=== PATIENT | male | born 1995 | race Caucasian/White ===

== ENCOUNTER 2018-06-01 07:10 | Observation (INO) | payer OTHER ==
[~2018-06-01] VITALS: Ht 182.9 cm; Wt 95.5 kg
[2018-06-01] MEDS: NS 1,000 ML IV SCH ×2 (01:15→18:26)
[2018-06-01] MEDS ORDERED: NS 1,000 ML IV ONE ×2 (07:45→11:45)
[2018-06-01 08:00] LABS: BASO % 0.2 % (0.0-1.0); EOS # 0.1 10^3/uL (0.0-0.50); HEMATOCRIT 42.7 % (42.0-52.0); HEMOGLOBIN 14.4 g/dl (13.5-17.5); LYMPH # 0.6 10^3/uL (1.5-6.5); LYMPH % 7.5 % (24.0-44.0); MEAN CORPUSCULAR HEMOGLOBIN 28.4 pg (27.0-33.0); MEAN CORPUSCULAR HGB CONC 33.7 g/dl (32.0-36.5); MEAN CORPUSCULAR VOLUME 84.2 fl (80.0-96.0); MONO # 0.5 10^3/uL (0.0-0.8); MONO % 6.6 % (0.0-5.0); NEUTROPHILS # 6.9 10^3/uL (1.8-7.7); PLATELET COUNT, AUTOMATED 165 10^3/uL (150-450); RED BLOOD COUNT 5.07 10^6/uL (4.30-6.10); WHITE BLOOD COUNT 8.2 10^3/uL (4.0-10.0)
--- NOTE | 2018-06-01 08:00 | REP ---
Head CT without contrast: History: Syncope. Comparison study: No comparison study. CT findings: Bone window settings demonstrate an intact bony calvarium. There is no evidence of skull fracture or incidental bony calvarial lesion. The visualized paranasal sinuses appear clear. No intraorbital abnormality is seen. On soft tissue window setting images; the lateral, third, and fourth ventricles are normal in size and position. Green-white differentiation pattern is normal above and below the tentorium. There are is no evidence of intracranial hemorrhage. No mass, edema, infarction, or midline shift is seen. No extra-axial fluid collection is appreciated. Impression: Negative noncontrast head CT. Electronically Signed by Nahun Jenkins MD 06/01/2018 07:58 A
--- NOTE | 2018-06-01 08:19 | REP ---
Chest x-ray: Two views. History: Syncopal episode . Comparison study: No comparison . Findings: The lungs are well inflated and free of infiltrate. The pleural angles are sharp. The heart size is normal. Pulmonary vasculature is not increased. No significant bony abnormality is seen. Impression: Negative chest x-ray. Electronically Signed by Nahun Jenkins MD 06/01/2018 08:18 A
[2018-06-01] MEDS ORDERED: KETOROLAC 30 MG/ML VIAL (J1885) IV ONE (08:30)
[2018-06-01 10:22] LABS: AMPHETAMINES LEVEL URINE NEGATIVE (NEGATIVE); BARBITURATES URINE NEGATIVE (NEGATIVE); BENZODIAZEPINES URINE NEGATIVE (NEGATIVE); CANNABINOIDS URINE POSITIVE (NEGATIVE); COCAINE METABOLITE URINE NEGATIVE (NEGATIVE); METHADONE URINE NEGATIVE (NEGATIVE); OPIATES URINE NEGATIVE (NEGATIVE); PHENCYCLIDINE URINE NEGATIVE (NEGATIVE)
[2018-06-01 10:47] LABS: BLOOD UREA NITROGEN 14 MG/DL (7-18); CALCIUM LEVEL 8.7 MG/DL (8.5-10.1); CARBON DIOXIDE LEVEL 28 MEQ/L (21-32); CHLORIDE LEVEL 108 MEQ/L (98-107); CPK CREATINE PHOSPHOKINASE 858 U/L (39-308); CREATININE FOR GFR 0.82 MG/DL (0.70-1.30); ETHYL ALCOHOL (ETHANOL) 0.003 % (0.000-0.010); FREE T4 1.08 NG/DL (0.76-1.46); GLOMERULAR FILTRATION RATE > 60.0 (>60); GLUCOSE, FASTING 110 MG/DL (70-100); MAGNESIUM LEVEL 1.8 MG/DL (1.8-2.4); MB/CK RELATIVE INDEX 0.33 (< OR =4); POTASSIUM SERUM 3.8 MEQ/L (3.5-5.1); SODIUM LEVEL 142 MEQ/L (136-145); THYROID STIMULATING HORMONE 0.625 uIU/ML (0.358-3.740); TROPONIN I < 0.02 NG/ML (< 0.10)
[2018-06-01 11:46] LABS: ALBUMIN 4.2 GM/DL (3.2-5.2); ALT/SGPT 34 U/L (12-78); BILIRUBIN,DIRECT < 0.1 MG/DL (0.0-0.2); BILIRUBIN,TOTAL 0.3 MG/DL (0.2-1.0); TOTAL PROTEIN 6.9 GM/DL (6.4-8.2)
[2018-06-01] MEDS ORDERED: levETIRAcetam INJection 1,000 MG in D5W 100 ML IV ONE (13:00)
[2018-06-01] MEDS ORDERED: ONDANSETRON 4MG/2ML VIAL (J2405) IV PRN (14:30)
--- NOTE | 2018-06-01 15:22 | HPE ---
DATE OF ADMISSION: 06/01/2018 PRIMARY CARE PROVIDER: None. HISTORY OF PRESENT ILLNESS: Mr. Vizcarra is a 22-year-old male who was brought in and accompanied by his mother, father and aunt for what appears to be a syncopal episode at home. Per the father, he found his son passed out on the floor at around 6:15 a.m. for a few minutes. During this time, he denies any shaking of the arms or legs, but does admit to tongue biting. He had an episode of vomiting during his ambulance ride. The father believes that this episode had lasted a few minutes and the patient was reportedly confused for about 5 to 10 minutes. He believes that he had a seizure even earlier in the day, around 2:00 a.m. today while he was sleeping. He states that during that episode he felt his right hand and arm stiffen up and he felt as if his arm was shaking when in reality it was not. He denies any episodes of bowel or bladder loss or any confusion at the time of admission. He was initially planned for discharge from the emergency room; however, had generalized tonic clonic seizure that lasted a few minutes in the emergency room that was witnessed by staff where he was reportedly shaking throughout. He was reportedly postictal afterwards for 5 to 10 minutes. The hospitalist was called to admit. The patient will be admitted under observation. Neurology is on board. At the time of admission, the patient denies any symptoms. PAST MEDICAL HISTORY: None. HOME MEDICATIONS: None. FAMILY HISTORY: One cousin with a seizure. SOCIAL HISTORY: Smokes marijuana daily, last intake was last night around 9:00 p.m. He drinks alcohol almost daily (a couple of shots) and drinks 10 to 15 whiskey shots on the weekends. Illicit substances, denies. ALLERGIES: None. SURGICAL HISTORY: Birthmark removed from the left arm and tattoo on his left upper arm. REVIEW OF SYSTEMS: Denies fevers, chills, weight loss. HEENT: Denies headache, vision or auditory changes. No eye or ear pain. No dysphagia. CARDIAC: Denies any chest pain, palpitations, or swelling. LUNGS: Denies any coughing, wheezing, or shortness of breath. GASTROINTESTINAL: Admits to nausea and vomiting. Denies any abdominal pain or changes in bowel habits. SKIN: Denies any new rashes, lesions, lumps or bumps. MUSCULOSKELETAL: Denies any body pain or muscle aches. NEUROLOGIC: Admits to an episode of syncope at home that lasted a few minutes, as well as generalized tonic clonic seizure here in the emergency room. Admits to episodes of confusion after the seizures. Admits to tongue biting during these episodes. No bladder or bowel incontinence. No paresthesias. No confusion currently. PHYSICAL EXAMINATION: VITAL SIGNS: Temperature 98, pulse 85, respirations 20, blood pressure 100/53, MAP of 69, pulse oximetry 97% on room air. GENERAL: Resting comfortably in bed. No acute distress. Alert and oriented times three. HEENT: Normocephalic, atraumatic. Extraocular muscles are intact. Anicteric sclerae. Has signs of bitten tongue from the recent seizure. No pharyngeal exudates, erythema or edema. CARDIAC: Regular rate and rhythm. No audible murmurs. Normal S1, S2. LUNGS: Clear to auscultation bilaterally. No wheezing, rhonchi or rales. ABDOMEN: Soft, nontender, nondistended. Positive bowel sounds. EXTREMITIES: 2+ radial pulses bilaterally. 5/5 strength in upper and lower extremities. NEUROLOGIC: Cranial nerves II through XII intact throughout. No focal deficits. Motor and sensation intact and equal bilaterally. No slurred speech or confusion. Negative Babinski. Intact and equal rapid alternating movements. Is fully conversant and able to follow the conversation. SKIN: No visible lesions, ulcerations or rashes. LABORATORY DATA: WBC 8.2, hemoglobin and hematocrit 14.4/42.7, platelets 167. Sodium 142, potassium 3.8, BUN and creatinine 14 and 0.82, magnesium 1.8. Liver panel normal. CPK 858. Cardiac markers are negative. TSH and T4 are normal. UA has 2+ protein, 1+ glucose, 2+ blood. Urine toxicology screen is positive for cannabinoids, otherwise negative. IMAGING: Head CT negative. Chest x-ray is negative. Head MRA and MRI are currently pending. IMPRESSION/PLAN: 1. Generalized tonic clonic seizure with a syncopal episode at home, which was also likely a seizure episode. The patient had a witnessed seizure episode here in the emergency room and given his syncopal episode at home, which may be related to this, we will admit the patient, place on seizure precautions, electroencephalogram (EEG) is ordered. Neurology has been consulted. Appreciate their input. The patient has been loaded with 1000 mg of Keppra in the emergency room and we will start him on 750 mg twice a day, per neurology recommendations. Currently MRI and MRA of the head are pending. His CT and chest x-ray on admission were negative thus far. We will place him on neuro checks. Current health status was discussed with the patient and family. All questions were answered. 2. Elevated CPK. Level is 858 on admission, likely related to his seizure episode. Continue with fluid hydration. The patient is asymptomatic currently. 3. Marijuana use. The patient smokes marijuana on a daily basis. Last smoked yesterday around 9:00 p.m. The patient has been counseled on smoking cessation. 4. Alcohol use. The patient is a heavy drinking of 10 to 15 shots of whiskey over the weekends, as well as "a couple of shots almost daily." Last drink was last night. We will closely monitor with CIWA protocol. The patient has been counseled on reducing and eliminating, if possible, all alcohol. 5. Deep vein thrombosis (DVT) prophylaxis. TEDs and sequential compression device (SCD). DISPOSITION: We will admit to general medical floor on the hospital service under observation status. Neurology consulted. My faculty preceptor for this patient encounter was physically present during the encounter and was fully available. All aspects of the patient interview, examination, medical decision making process, and medical care plan development were reviewed and approved by the faculty preceptor. The faculty preceptor is aware and concurs with the plan as stated in the body of this note and will attest to such by his/her co-signature.
--- NOTE | 2018-06-01 15:48 | REP ---
MRA BRAIN WITHOUT CONTRAST: HISTORY: Seizure. 3D [id number] MR angiography was performed at the level of the [place]. There is no aneurysm, arteriovenous malformation or atherosclerotic lesion. Major intracranial vessels are patent. The vertebral arteries are equal in size. IMPRESSION: Normal MRA brain. Electronically Signed by Tavon Mak MD 06/01/2018 03:56 P
--- NOTE | 2018-06-01 15:51 | REP ---
MR BRAIN WITHOUT CONTRAST: HISTORY: Seizure. COMPARISON: CT 06/01/2018. There are no areas of abnormal signal intensity in the brain. There is no intraparenchymal hemorrhage, infarct, mass, or midline shift. The ventricular system is normal in appearance. There is no extracerebral collection. The visualized sinuses are clear. IMPRESSION: There is no intracranial lesion. Electronically Signed by Tavon Mak MD 06/01/2018 03:57 P
[2018-06-01 16:45] VITALS: BP 122/61
[2018-06-01 18:40] VITALS: BP 144/89
[2018-06-01] MEDS: levETIRAcetam 250MG TABLET (KEPPRA) PO SCH (20:02)
[2018-06-01] MEDS: ACETAMINOPHEN TAB 650MG DOSE (2X325MG) PO PRN (21:12)
[2018-06-01 22:00] VITALS: BP 129/64
[2018-06-02 02:00] VITALS: BP 125/65
[2018-06-02 06:00] VITALS: BP 122/69
[2018-06-02 07:21] LABS: HEMATOCRIT 37.1 % (42.0-52.0); HEMOGLOBIN 12.5 g/dl (13.5-17.5); MEAN CORPUSCULAR HEMOGLOBIN 28.5 pg (27.0-33.0); MEAN CORPUSCULAR HGB CONC 33.7 g/dl (32.0-36.5); MEAN CORPUSCULAR VOLUME 84.5 fl (80.0-96.0); PLATELET COUNT, AUTOMATED 148 10^3/uL (150-450); RED BLOOD COUNT 4.39 10^6/uL (4.30-6.10); WHITE BLOOD COUNT 7.4 10^3/uL (4.0-10.0)
[2018-06-02] MEDS: levETIRAcetam 250MG TABLET (KEPPRA) PO SCH ×2 (07:44→21:03)
[2018-06-02] MEDS: NS 1,000 ML IV SCH ×2 (07:45→13:00)
[2018-06-02 08:01] LABS: BLOOD UREA NITROGEN 8 MG/DL (7-18); CARBON DIOXIDE LEVEL 26 MEQ/L (21-32); CHLORIDE LEVEL 110 MEQ/L (98-107); CREATININE FOR GFR 0.75 MG/DL (0.70-1.30); GLOMERULAR FILTRATION RATE > 60.0 (>60); GLUCOSE, FASTING 96 MG/DL (70-100); POTASSIUM SERUM 3.4 MEQ/L (3.5-5.1); SODIUM LEVEL 142 MEQ/L (136-145)
[2018-06-02 08:02] LABS: CPK CREATINE PHOSPHOKINASE 1100 U/L (39-308)
--- NOTE | 2018-06-02 09:08 | CR ---
DATE OF CONSULTATION: 06/01/2018 REASON FOR CONSULTATION: New-onset seizure. HISTORY OF PRESENTING ILLNESS: Dino Vizcarra is a 22-year-old male who has been experiencing approximately 1-2-month symptoms of right hand digits 4 and 5 locking up on him, as well as the hand. He states that earlier in the day, the patient had an episode where his hand locked up. He then passed out. He was able to return back from that episode of loss of consciousness without any significant postictal state. He states that he went to the shower and then had another episode. He had a witnessed episode in the hospital with generalized tonic-clonic activity, including tongue biting. He denied any incontinence to his bowel or bladder. The patient did have significant postictal confusion. Head CT was negative. The patient did have an MRI of the brain and MR angiogram of the head, which were read as normal. The patient has a family history of epilepsy in a second cousin of his. The patient smokes marijuana several times a day. The patient had alcohol and drinks 10-15 whiskey shots on weekends. He has a couple of shots of alcohol every day. He denies any use of illicit drugs other than the marijuana. The patient at this point in time was loaded on Keppra 1000 mg and then maintained on 750 mg twice a day. He is feeling nauseated and did throw up today. He does have a slight fever. The patient states that he feels sore throughout his body. His tongue is sore where he bit his tongue bilaterally. REVIEW OF SYSTEMS: 14-point review of systems obtained and is negative except as per history of present illness (HPI). PHYSICAL EXAMINATION Blood pressure is 103/52, pulse rate 76, respiratory rate is 18, temperature is 98.6 degrees Fahrenheit, oxygenation is 99% on room air, current height 6 feet 0 inches, current weight is 95 kg. The patient is awake, alert, oriented to person, place, and time. Speech, language, comprehension, and repetition are intact. Pupils are 3 mm, round, reactive to light. Extraocular movements are intact in all directions without nystagmus. Sensation V1, V2, V3 is intact to light touch. No facial asymmetry to activation. Palate elevates symmetrically. Tongue is midline. Tongue had bite quiles bilateral sides of the tongue. There is no pronator drift. Strength is 5/5, including bilateral deltoids, biceps, triceps, handgrip, iliopsoas, quadriceps, anterior tibialis. Deep tendon reflexes are 2+ throughout. Babinski signs are absent. Sensory is intact to light touch in all four extremities. Coordination normal [id number] without any signs of ataxia or dysmetria. Gait deferred. ASSESSMENT: A 22-year-old male with suspected focal motor seizures and generalized tonic-clonic seizure. PLAN: 1. Continue Keppra 750 mg by mouth twice a day. Obtain electroencephalogram (EEG). 2. The patient has been advised no driving, operating heavy machinery, climbing ladders, working from heights, etc. for the next 6 months minimum, up to 12 months. The patient is to show compliance with therapy and outpatient followups. The patient should avoid excessive use of alcohol and marijuana. History obtained from both the patient and the patient's parents and aunt. The patient to followup in the [facility] Neurology clinic 6-8 weeks after discharge.
[2018-06-02 14:00] VITALS: BP 121/66
--- NOTE | 2018-06-02 16:02 | IPNPDOC ---
Subjective Date Seen The patient was seen on 06/02/18. Subjective Chief Complaint/HPI The patient is a 22-year-old gentleman admitted for new onset seizures. Events since last encounter Patient reports he is doing well today. Denies any headache/change in vision/no numbness or weakness. Denies any nausea or vomiting. Tolerating oral fluid intake well. Has some soreness when he swallows food related to tongue biting. Denies any chest pain or shortness of breath. No abdominal pain. Urinating ok and having bowel movements okay Objective Physical Examination General Exam: Positive: Cooperative, No Acute Distress ENT Exam: Positive: Mucous membr. moist/pink, Other ENT (tongue bite noted on lateral aspect) Chest Exam: Positive: Clear to auscultation, Normal air movement Heart Exam: Positive: Rate Normal, Regular Rhythm, Normal S1, Normal S2 Abdomen Exam: Positive: Normal bowel sounds, Soft Neuro Exam: Positive: Normal Speech, Strength at 5/5 X4 ext, Cranial Nerves 3- 12 NL, Reflexes 2+ Psych Exam: Positive: Mental status NL Assessment /Plan Assessment New-onset seizure/generalized tonic-clonic seizure: -MRI/MRA negative for any acute findings -EEG was done todaypending -Appreciate input by neurology -Continue Keppra -Seizure precautionspatient has been advised regarding avoiding driving/operating heavy machinery/working near open flames/working at heights/using stairs/using bathtub/swimming alone/riding bike/babysitting until at least 6 months seizure-free interval. Rhabdomyolysis: -Secondary to seizures -Patient received aggressive IV hydration -Recheck CPK in a.m. Marijuana use: -Patient has been previously counseled regarding cessation Alcohol use: -Patient has been counseled previously regarding cessation DVT prophylaxis: -Low-riskpatient is ambulatory. Disposition: Anticipate possible discharge home tomorrow pending EEG results and recheck of CPK Plan/VTE VTE Prophylaxis Ordered?: Yes VS, I&O, 24H, Fishbone Vital Signs/I&O Vital Signs Date Time Temp Pulse Resp B/P (MAP) Pulse Ox O2 Delivery O2 Flow Rate FiO2 06/02/18 06:00 99.5 80 18 122/69 (86) 97 06/01/18 15:45 Room Air I&O- Last 24 Hours up to 6 AM 06/02/18 06:00 Intake Total 2710 ml Output Total 0 ml Balance 2710 ml Laboratory Data 24H LABS Laboratory Tests 2 06/01/18 19:22: Lactic Acid Level 1.1 06/02/18 06:44: Nucleated Red Blood Cells % (auto) 0.0, Anion Gap 6L, Glomerular Filtration Rate > 60.0, Blood Urea Nitrogen 8, Creatinine 0.75, Sodium Level 142, Potassium Leve l 3.4L, Chloride Level 110H, Carbon Dioxide Level 26, Calcium Level 8.0L, Total Creatine Kinase 1100H CBC/BMP Laboratory Tests 06/02/18 06:44 Red Blood Count 4.39, Mean Corpuscular Volume 84.5, Mean Corpuscular Hemoglobin 28.5, Mean Corpuscular Hemoglobin Concent 33.7, Red Cell Distribution Width 12.5, Calcium Level 8.0 L Microbiology Microbiology 06/01/18 Blood Culture, Received Pending 06/01/18 Blood Culture, Received Pending ANNIA SANCHEZ MD Jun 02, 2018 16:02
[2018-06-02] MEDS: ACETAMINOPHEN TAB 650MG DOSE (2X325MG) PO PRN (21:03)
--- NOTE | 2018-06-02 21:42 | ECGEPIP ---
Stationary ECG Study [facility] - ED Test Date: 2018-06-01 Pat Name: HANSEL COLON Department: Room: - Gender: M Cabinet Professional: : [id number] Requested By: MALENA Singh PA-C Order Number: [id number] Reading MD: Dave Quiñones Measurements Intervals [place] Rate: 86 P: 28 AK: 169 QRS: 78 QRSD: 112 T: 36 QT: 341 QTc: 409 Interpretive Statements SINUS RHYTHM MODERATE INTRAVENTRICULAR CONDUCTION DELAY NONSPECIFIC T-WAVE ABNORMALITY NO PRIORS FOR COMPARISON Electronically Signed On 06-02-2018 21:41:54 EDT by Dave Quiñones
[2018-06-02 22:00] VITALS: BP 144/81
[2018-06-03 06:00] VITALS: BP 141/72
[2018-06-03 06:05] VITALS: BP 141/72
[2018-06-03] MEDS: ACETAMINOPHEN TAB 650MG DOSE (2X325MG) PO PRN (06:22)
[2018-06-03 07:12] LABS: BASO % 0.5 % (0.0-1.0); EOS # 0.3 10^3/uL (0.0-0.50); EOS % 5.4 % (0.0-3.0); HEMATOCRIT 39.5 % (42.0-52.0); HEMOGLOBIN 13.5 g/dl (13.5-17.5); LYMPH # 1.1 10^3/uL (1.5-6.5); LYMPH % 18.6 % (24.0-44.0); MEAN CORPUSCULAR HEMOGLOBIN 28.4 pg (27.0-33.0); MEAN CORPUSCULAR HGB CONC 34.2 g/dl (32.0-36.5); MONO # 0.7 10^3/uL (0.0-0.8); MONO % 11.3 % (0.0-5.0); NEUTROPHILS # 3.9 10^3/uL (1.8-7.7); NEUTROPHILS % 63.7 % (36.0-66.0); PLATELET COUNT, AUTOMATED 169 10^3/uL (150-450); RED BLOOD COUNT 4.76 10^6/uL (4.30-6.10); WHITE BLOOD COUNT 6.1 10^3/uL (4.0-10.0)
[2018-06-03 07:35] LABS: BLOOD UREA NITROGEN 6 MG/DL (7-18); CALCIUM LEVEL 8.7 MG/DL (8.5-10.1); CARBON DIOXIDE LEVEL 27 MEQ/L (21-32); CHLORIDE LEVEL 108 MEQ/L (98-107); CPK CREATINE PHOSPHOKINASE 607 U/L (39-308); CREATININE FOR GFR 0.79 MG/DL (0.70-1.30); GLOMERULAR FILTRATION RATE > 60.0 (>60); GLUCOSE, FASTING 100 MG/DL (70-100); POTASSIUM SERUM 3.5 MEQ/L (3.5-5.1); SODIUM LEVEL 140 MEQ/L (136-145)
[2018-06-03] MEDS: levETIRAcetam 250MG TABLET (KEPPRA) PO SCH (09:00)
[2018-06-03] MEDS ORDERED: LEVE750T5 PO (13:37)
--- NOTE | 2018-06-03 16:54 | EEG ---
DATE OF PROCEDURE: 06/02/2018 REFERRING PHYSICIAN: Dr. Blanco Mcghee DIAGNOSIS: Generalized seizure. EEG NUMBER: [id number] HISTORY: The patient is a 22-year-old man with history of syncopal episodes and possible seizure. The patient has history of alcoholism and smokes marijuana daily. He had a generalized tonic-clonic seizure lasting for few minutes in the emergency department and he was shaking throughout as witnessed by the staff. He was confused for 5-10 minutes. He was discharged home from emergency department. He is currently taking Keppra, Tylenol, Zofran, etc.. TECHNICAL DESCRIPTION: This digital EEG was recorded by 21 scalp ear and two EKG electrodes and was reviewed in bipolar and referential montages following reformatting in 10-20 international electrode placement system. INTERPRETATION: The patient was noted to be in awake and drowsy states during this EEG. Resting awake background rhythm consisted of well-formed posterior dominant rhythm with anterior/posterior gradient comprising of 9 Hz alpha activity measuring 15 - 40 microvolts in amplitude which was symmetric and reactive to eye opening. Anteriorly low voltage and mixed frequency activity was made noted. Stage I and II sleep were reviewed and were symmetric bilaterally. Hyperventilation elicited mild theta slowing of background. No focal, lateralizing or epileptiform abnormalities were seen. No clinical or electrographic seizures were recorded. EKG revealed normal sinus rhythm. Photic stimulation remained unremarkable. No relevant clinical activity was noted. CONCLUSION: This EEG in awake, drowsy states, stage I and II sleep is within normal limits.
--- NOTE | 2018-06-03 20:32 | DS.PDOC ---
Discharge Summary General Date of Admission Jun 01, 2018 at 14:01 Date of Discharge 06/03/18 Specialist/Consultants Involve: LUIGI PFEIFFER MD Discharge Summary PROCEDURES PERFORMED DURING STAY: EEG: Result pending at time of dictation ADMITTING DIAGNOSES: Generalized tonic-clonic seizure with syncopal episode at home which was also likely a seizure episode, elevated CPK, marijuana use, alcohol use DISCHARGE DIAGNOSES: New onset generalized tonic-clonic seizure, rhabdomyolysis improving, marijuana use, alcohol use COMPLICATIONS/CHIEF COMPLAINT: Seizure. HISTORY OF PRESENT ILLNESS: The patient is a 21-year-old gentleman was brought to the ER by his family for concerns regarding episode of unresponsiveness. The patient had witnessed seizure in the ERit was generalized tonic-clonic with tongue biting as well as postictal phase. The patient was admitted to our facility for further evaluation and management. HOSPITAL COURSE: New-onset seizure/generalized tonic-clonic seizure: -MRI/MRA negative for any acute findings -EEG was done resultpending -Patient was seen by neurology by Dr. Pfeiffer. -Per neurology recs, patient will be continued on Keppra on discharge. -Seizure precautionspatient has been advised regarding avoiding driving/operating heavy machinery or sharp power tools/working near open flames/working at heights/using stairs/using bathtub/swimming alone/riding bike/babysitting until at least 6 months seizure-free interval. Rhabdomyolysis: -Secondary to seizures -Patient received aggressive IV hydration -CPK improving -Tolerating oral fluid intake well Marijuana use/alcohol: -Patient was counseled regarding cessation On day of discharge, patient is alert and oriented, able to ambulate and has not had any further seizures since the time of admission. Plan is for the patient will discharge home today. DISCHARGE MEDICATIONS: Please see below. ALLERGIES: Please see below. PHYSICAL EXAMINATION ON DISCHARGE: VITAL SIGNS: Please see below. GENERAL: Patient was lying propped up in bed. No distress CARDIOVASCULAR EXAMINATION: S1, S2 heard, gallops RESPIRATORY EXAMINATION: Clear to auscultation bilaterally ABDOMINAL EXAMINATION: Soft, nontender NEUROLOGICAL EXAMINATION: Awake, alert. Cranial nerves 2-12 intact. No pronator drift. Intact [id number]. LABORATORY DATA: Please see below. IMAGING: Head CT without contrast 06/01/18: Impression: Negative noncontrast head CT. Chest XR 06/01/18: Impression: Negative chest x-ray. MRA Brain 06/01/18: IMPRESSION: Normal MRA brain. MRI Brain 06/01/18: IMPRESSION: There is no intracranial lesion. ACTIVITY: As tolerated with restrictions as noted above DIET: Regular DISCHARGE PLAN: Patient is being discharged home today. Outpatient follow-up with neurology in 6-8 weeks DISPOSITION: Home DISCHARGE CONDITION: Stable. TIME SPENT ON DISCHARGE: 35 minutes. Vital Signs/I&Os Vital Signs Date Time Temp Pulse Resp B/P (MAP) Pulse Ox O2 Delivery O2 Flow Rate FiO2 06/03/18 06:05 86 141/72 06/03/18 06:00 97.9 19 98 06/01/18 15:45 Room Air I&O- Last 24 Hours up to 6 AM 06/03/18 06:00 Intake Total 1320 ml Balance 1320 ml Laboratory Data Labs 24H Laboratory Tests 2 06/03/18 06:17: Immature Granulocyte % (Auto) 0.5, White Blood Count 6.1, Red Blood Count 4.76, Hemoglobin 13.5, Hematocrit 39.5L, Mean Corpuscular Volume 83.0, Mean Corpuscular Hemoglobin 28.4, Mean Corpuscular Hemoglobin Concent 34.2, Red Cell Distribution Width 12.2, Platelet Count 169, Neutrophils (%) (Auto) 63.7, Lymphocytes (%) (Auto) 18.6L, Monocytes (%) (Auto) 11.3H, Eosinophils (%) (Auto) 5.4H, Basophils (%) (Auto) 0.5, Neutrophils # (Auto) 3.9, Lymphocytes # (Auto) 1.1L, Monocytes # (Auto) 0.7, Eosinophils # (Auto) 0.3, Basophils # (Auto) 0.0, Nucleated Red Blood Cells % (auto) 0.0, Anion Gap 5L, Glomerular Filtration Rate > 60.0, Blood Urea Nitrogen 6L, Creatinine 0.79, Sodium Level 140, Potassium [place] 3.5, Chloride Level 108H, Carbon Dioxide Level 27, Calcium Level 8.7, Total Creatine Kinase 607H CBC/BMP Laboratory Tests 06/03/18 06:17 Red Blood Count 4.76, Mean Corpuscular Volume 83.0, Mean Corpuscular Hemoglobin 28.4, Mean Corpuscular Hemoglobin Concent 34.2, Red Cell Distribution Width 12.2, Neutrophils (%) (Auto) 63.7, Lymphocytes (%) (Auto) 18.6 L, Monocytes (%) (Auto) 11.3 H, Eosinophils (%) (Auto) 5.4 H, Basophils (%) (Auto) 0.5, Neutrophils # (Auto) 3.9, Lymphocytes # (Auto) 1.1 L, Monocytes # (Auto) 0.7, Eosinophils # (Auto) 0.3, Basophils # (Auto) 0.0, Calcium Level 8.7 Microbiology Microbiology 06/01/18 Blood Culture - Preliminary, Resulted No growth after 24 hours . All specim... 06/01/18 Blood Culture - Preliminary, Resulted No growth after 24 hours . All specim... Discharge Medications Scheduled Levetiracetam (Levetiracetam) 750 Mg Tab, 750 MG PO BID Allergies Coded Allergies: cefprozil (Verified Allergy, Unknown, 06/01/18) ANNIA SANCHEZ MD Jun 03, 2018 13:40
== END 2018-06-03 14:00 | disposition home or self-care (01) ==
LOC: M ED 07:10 → M ED INP 14:01 → M MS5PR 16:35
PROVIDERS: ADMIT Internal Medicine; ATTEND Internal Medicine
DX: G40.309 Generalized idiopathic epilepsy and epileptic syndromes, not intractable, without status epilepticus (principal); M62.82 Rhabdomyolysis; R74.8 Abnormal levels of other serum enzymes; F12.90 Cannabis use, unspecified, uncomplicated; F10.10 Alcohol abuse, uncomplicated; Z88.1 Allergy status to other antibiotic agents
CPT/HCPCS: 36415; 70450; 70544; 70551; 71046; 80048; 80076; 80307; 81001; 82550; 82553; 83605; 83735; 84439; 84443; 84484; 85025; 85027; 87040; 93005; 95819; 96361; 96374; 96375; 99285; G0480; J1885; J1953; J2405